=== PATIENT | female | born 1980 | race Caucasian/White ===

== ENCOUNTER 2017-01-06 16:27 | Emergency (ER) | payer OTHER ==
[~2017-01-06] VITALS: Ht 177.8 cm; Wt 103.9 kg
[2017-01-06] MEDS ORDERED: KEFLEX500 MG PO (17:15)
[2017-01-06] MEDS ORDERED: BACTRIM,SEPT1 TABLET PO (17:15)
[2017-01-06 17:52] VITALS: BP 118/83
== END 2017-01-06 17:53 | disposition home or self-care (01) ==
LOC: EME 16:27
PROC: 0H9EXZZ Drainage of Left Lower Arm Skin, External Approach (ICD-10-PCS; principal; 2017-01-06)
DX: L02.414 Cutaneous abscess of left upper limb (principal); F17.200 Nicotine dependence, unspecified, uncomplicated
CPT/HCPCS: 99281; 99283

== ENCOUNTER 2017-01-09 15:30 | Emergency (ER) | payer OTHER ==
[~2017-01-09] VITALS: Ht 177.8 cm; Wt 105.2 kg
[~2017-01-09 15:30] MED LIST: BACTRIM,SEPT1 TABLET PO; KEFLEX500 MG PO
[2017-01-09 18:09] VITALS: BP 119/61
== END 2017-01-09 18:10 | disposition home or self-care (01) ==
LOC: EME 15:30
DX: Z48.01 Encounter for change or removal of surgical wound dressing (principal); L02.414 Cutaneous abscess of left upper limb; F17.210 Nicotine dependence, cigarettes, uncomplicated
CPT/HCPCS: 99281; 99283